=== PATIENT | female | born 1945 | race African-American/Black ===

== ENCOUNTER 2019-02-02 10:40 | Emergency (ER) | payer OTHER ==
[2019-02-02 11:08] VITALS: BP 114/66; PULSE 86; TEMP 98.3; BMI 24.6
[2019-02-02] MEDS ORDERED: NEOMYCIN/POLYMYXN/HC OTIC SOLUTION 10 ML BOTTLE AD STA (11:57)
--- NOTE | 2019-02-02 12:05 | PDOC ---
History of Present Illness - General Chief Complaint: Ear Problem Stated Complaint: RT EAR PROBLEM Time Seen by Provider: 02/02/19 11:47 History Source: Patient Exam Limitations: No Limitations - History of Present Illness Initial Comments: 02/02/19 12:00 Patient here with complaints of right ear pain 2 days. States blood Debrox as thought was ceruminosis but did not resolve issue. Timing/Duration: reports: getting worse Severity: reports: mild, moderate Past History - Travel Traveled outside of the country in the last 30 days: No Close contact w/someone who was outside of country & ill: No - Past Medical History Allergies/Adverse Reactions: Allergies Allergy/AdvReac Type Severity Reaction Status Date / Time No Known Allergies Allergy Verified 02/09/12 10:46 Home Medications: Ambulatory Orders Antipyrine-Benzocaine Ear Drop [Auralgan] 2 drop AD QID #1 bottle 02/09/12 COPD: No - Immunization History Immunization Up to Date: No - Suicide/Smoking/Psychosocial Hx Smoking Status: Yes Smoking History: Current some day smoker Number of Cigarettes Smoked Daily: 3 Information on smoking cessation initiated: No Hx Alcohol Use: No Drug/Substance Use Hx: No Review of Systems - Review of Systems Able to Perform ROS?: Yes Is the patient limited Faroese proficient: Yes Constitutional: Yes: Symptoms Reported, See HPI, Malaise HEENTM: Yes: Symptoms Reported, See HPI, Ear Pain, Nose Congestion Respiratory: Yes: See HPI, Cough. No: Symptoms reported Musculoskeletal: Yes: Symptoms Reported Integumentary: No: Symptoms Reported All Other Systems: Reviewed and Negative *Physical Exam - Vital Signs Last Vital Signs Temp Pulse Resp BP Pulse Ox 98.3 F 86 17 114/66 100 02/02/19 11:04 02/02/19 11:04 02/02/19 11:04 02/02/19 11:04 02/02/19 11:04 - Physical Exam General Appearance: Yes: Nourished, Appropriately Dressed, Apparent Distress, Mild Distress HEENT: positive: ALEKSANDRA, TMs Normal (right TM bubbled with purulent drainage in canal. Left TM unable to visualize due to cerumen). negative: Normal ENT Inspection, Rhinorrhea, Sinus Tenderness Neck: positive: Supple, Lymphadenopathy (R), Lymphadenopathy (L). negative: Tender Respiratory/Chest: positive: Lungs Clear, Normal Breath Sounds Gastrointestinal/Abdominal: positive: Normal Bowel Sounds, Soft Extremity: positive: Normal Capillary Refill Integumentary: positive: Dry, Warm Neurologic: positive: minister helper II-XII NML intact, Fully Oriented, Alert, Normal Mood/ Affect, Normal Response, Motor Strength /5 Progress Note - Progress Note Progress Note: Otitis externa, will treat with Cortisporin *DC/Admit/Observation/Transfer Diagnosis at time of Disposition: Otitis externa Qualifiers: Otitis externa type: unspecified type Chronicity: acute Laterality: right Qualified Code(s): H60.501 - Unspecified acute noninfective otitis externa, right ear - Discharge Dispostion Disposition: HOME Condition at time of disposition: Stable Decision to Admit order: No - Referrals - Patient Instructions Printed Discharge Instructions: DI for Otitis Externa Additional Instructions: Rest, lots of fluids; water, teas, soups Hot wet soaks to ear/hot packs may help relieve some pain May use [id number] anesthetic drops to ears to help relieve some pain Avoid getting water in ear, may use alcohol drops to help dry up any water retained in ears Severe using earplugs when swimming to avoid any water retention Continue ibuprofen or Tylenol for pain and fevers Cortisporin otic solution 3-5 drops 3 times a day for 5 days followup with private physician / ENT doctor in 2-3 days Return to emergency department or see private physician immediately for swelling , redness, from ears, or fevers, - Post Discharge Activity Forms/Work/School Notes: Back to Work
[2019-02-02] MEDS ORDERED: NEOMYCIN/POLYMYXN/HC OTIC SOLUTION 10 ML BOTTLE ONE (12:13)
== END 2019-02-02 12:40 | disposition home or self-care (01) ==
LOC: JERFT 10:40
DX: H60.501 Unspecified acute noninfective otitis externa, right ear (principal)
CPT/HCPCS: 99281-25

== ENCOUNTER 2019-09-27 08:13 | Day surgery (SDC) | payer OTHER ==
[2019-09-26 15:22] VITALS: BMI 25.9
[2019-09-27 10:16] VITALS: TEMP 97.7
[2019-09-27 10:26] VITALS: BP 133/88; PULSE 85
--- NOTE | 2019-09-28 11:45 | PATH ---
Surgical Pathology Report Patient Name: PREETHI PACHECO Med. Rec. #: [id number] /Age/Gender: 1945 (Age: 73) / F Account: [id number] Location: [facility] Taken: 09/27/2019 Received: 09/27/2019 Reported: 09/28/2019 Physicians: Tyrese Livingston M.D. Specimen(s) Received RECTAL POLYP Clinical History Adenoma surveillance Postoperative diagnosis: Rectal polyps, diverticulosis Final Diagnosis COLON, RECTUM, BIOPSY: HYPERPLASTIC POLYPS. Electronically Signed Samson Pardo M.D. Gross Description Received in formalin, labeled "biopsy rectal polyps" are 6 denney, irregular portions of soft tissue ranging from 0.2-0.4 cm. in greatest dimension. The specimens are submitted in toto in one cassette. /09/27/2019 [facility]09/27/2019
== END 2019-09-27 10:46 | disposition home or self-care (01) ==
LOC: JASU-ENDO 08:13
PROVIDERS: ATTEND Internal Medicine Gastroenterology
PROC: 0DBP8ZX Excision of Rectum, Via Natural or Artificial Opening Endoscopic, Diagnostic (ICD-10-PCS; principal; 2019-09-27 09:00)
DX: Z12.11 Encounter for screening for malignant neoplasm of colon (principal); Z86.010 Personal history of colon polyps; K62.1 Rectal polyp; K57.30 Diverticulosis of large intestine without perforation or abscess without bleeding; I10 Essential (primary) hypertension; E11.9 Type 2 diabetes mellitus without complications; Z79.84 Long term (current) use of oral hypoglycemic drugs

== ENCOUNTER 2023-11-02 04:31 | Day surgery (SDC) | payer OTHER ==
[2023-10-25 13:29] VITALS: BMI 22.1
[2023-11-02 14:23] VITALS: TEMP 97.6
[2023-11-02 14:35] VITALS: BP 118/65; PULSE 76; RESP 17
== END 2023-11-02 13:43 | disposition home or self-care (01) ==
LOC: JASU-ENDO 04:31
PROVIDERS: ATTEND Internal Medicine Gastroenterology
PROC: 0DBN8ZX Excision of Sigmoid Colon, Via Natural or Artificial Opening Endoscopic, Diagnostic (ICD-10-PCS; principal; 2023-11-02 11:00)
DX: Z12.11 Encounter for screening for malignant neoplasm of colon (principal); K63.5 Polyp of colon; K64.8 Other hemorrhoids; Z86.010 Personal history of colon polyps
CPT/HCPCS: 88305-TC